=== PATIENT | female | born 1995 | race Caucasian/White ===

== ENCOUNTER 2024-03-04 13:51 | Outpatient (CLI) | payer OTHER, SELFPAY ==
--- NOTE | 2024-03-04 14:00 | CRLHL7_ITS ---
For Patients: As a result of the Cures Act, medical imaging exams and procedure reports are released immediately into your electronic medical record. You may view this report before your referring provider. If you have questions, please contact your health care provider. INDICATION: First trimester scan, establish dates. COMPARISON: None. TECHNIQUE: Real-time kinney-scale imaging of the pelvis was performed. FINDINGS: Sonographic imaging demonstrates a single living intrauterine gestation. The embryo demonstrates a regular cardiac rate measuring 171 beats per minute. The embryo`s crown-rump length measurement of 2.6 cm corresponds to a gestational age of 9 weeks 3 days with a sonographic due date of 10/04/2024. There is a normal-appearing yolk sac. There are no gross abnormalities noted within the embryo at this early state of development. The gestational sac has a normal appearance. There is no evidence of a perigestational hemorrhage. The amount of fluid within the sac appears appropriate for gestational age. The cervix is closed. The myometrium appears normal. The ovaries are of normal size. There are no suspicious fluid collections noted in the cul-de-sac. IMPRESSION: Normal first trimester OB ultrasound exam. Gestational age calculated at 9 weeks 3 days with a sonographic due date of 10/04/2024. Dictated by Kyle Liu MD @ 03/05/2024 10:41:14 AM (Electronically Signed)
== END 2024-03-04 13:52 | disposition home or self-care (01) ==
LOC: US 13:52
PROVIDERS: Visit Provider Physician Assistant
DX: Z34.91 Encounter for supervision of normal pregnancy, unspecified, first trimester (principal); Z3A.09 9 weeks gestation of pregnancy
CPT/HCPCS: 76801

== ENCOUNTER 2024-03-04 15:08 | Outpatient (CLI) | payer OTHER, SELFPAY | END 2024-03-04 15:09 | disposition home or self-care (01) | PROVIDERS: Visit Provider Advanced Practice Midwife | DX: Z34.91 Encounter for supervision of normal pregnancy, unspecified, first trimester (principal); R82.90 Unspecified abnormal findings in urine | CPT/HCPCS: 83020; 83021; 85660; 86592; 86703; 86704; 86706; 86762; 86787; 86803; 86850; 86900; 86901; 87086; 87340 ==

== ENCOUNTER 2024-05-24 10:05 | Outpatient (CLI) | payer OTHER, SELFPAY ==
--- NOTE | 2024-05-24 10:15 | CRLHL7_ITS ---
For Patients: As a result of the Century Cures Act, medical imaging exams and procedure reports are released immediately into your electronic medical record. You may view this report before your referring provider. If you have questions, please contact your health care provider. OBSTETRICAL ULTRASOUND ??? ANATOMY SURVEY, 05/24/2024 INDICATION: Basic anatomy survey. CLINICAL HISTORY: SUE by LMP: 09/30/2024 Gestational age: 21 weeks 4 days TECHNIQUE: Real-time kinney-scale imaging of the fetus was performed transabdominal. PREVIOUS ULTRASOUND: 03/04/2024 FINDINGS: position: Multiple positions. Cervix: Visualized Technique: Transabdominal Length of closed cervix: 3.7 cm Placenta position: Posterior Technique: Transabdominal Placenta tip to internal os: 5.7 cm Umbilical cord: 3-vessel cord Placental insertion: Central Amniotic fluid: 2.9 cm SDP (greater than/equal to 2 to less than 8 cm) ANATOMY SURVEY: Observed Structures Cerebellum: Yes; 2.1 cm, 21 weeks 1 day Cisterna magna: Yes; 5.9 mm Nuchal fold: Yes; 4.1 mm Lateral ventricle: Yes; 6.8 mm CSP: Yes Midline falx: Yes Choroid plexus: Yes Spine: Yes Stomach: Yes Abdominal cord insert: Yes Urinary bladder: Yes Kidneys: Yes Diaphragm: Yes Nose/lips: Yes Orbital view: Yes Profile: Yes Upper extremities: Yes Lower extremities: Yes Hands: Yes Feet: Yes 4-chamber heart: Yes LVOT: Yes RVOT: Yes 3VV: Yes 3VTV: Yes BIOMETRY BPD: 4.7 cm, 20 weeks 2 days, 8% HC: 18 cm, 20 weeks 3 days, 5% AC: 15.4 cm, 20 weeks 4 days, 16% FL: 3.5 cm, 21 weeks 1 day, 26% FL/AC: 22.86% HC/AC ratio: 1.16 heart rate: 138 bpm age by this ultrasound: 20 weeks 5 days SUE by this ultrasound: 10/06/2024 Estimated weight: 378 grams (0 pounds 13 ounces) Percentile by SUE: 13% IMPRESSION: 1) Sonographic gestational age is 20 weeks 5 days and sonographic due date is 10/06/2024. Sonographic age is 6 days behind the clinical age. 2) Estimated weight is 13th percentile. Abdominal circumference is 16th percentile. Head circumference is 5th percentile. 3) Normal anatomic survey. KYLE ESPINOZA M.D. Diagnostic Radiologist [email or web address] Transcribed: 12:[address]/Dictated by: Kyle Espinoza MD @ 05/24/2024 11:46:00 AM (Electronically Signed)
== END 2024-05-24 10:06 | disposition home or self-care (01) ==
LOC: US 10:06
PROVIDERS: Visit Provider Advanced Practice Midwife
DX: Z34.92 Encounter for supervision of normal pregnancy, unspecified, second trimester (principal); Z3A.21 21 weeks gestation of pregnancy
CPT/HCPCS: 76805

== ENCOUNTER 2024-07-19 08:07 | Outpatient (CLI) | payer OTHER, SELFPAY ==
--- NOTE | 2024-07-19 08:15 | CRLHL7_ITS ---
For Patients: As a result of the Century Cures Act, medical imaging exams and procedure reports are released immediately into your electronic medical record. You may view this report before your referring provider. If you have questions, please contact your health care provider. OB ULTRASOUND LMP: 12/25/2023. SUE by LMP: 09/30/2024. GA: 29 w, 4 d. Single. Comparison: 05/24/2024, 03/04/2024. INDICATION: Follow-up growth. TECHNIQUE: Real time grayscale imaging of the fetus was performed. Transabdominal. CERVIX: Not visualized. POSITIONING: Vertex. AMNIOTIC FLUID: 6.2 cm. SDP (N: greater than 2 x 1 cm) PLACENTA: Technique: Transabdominal. PLACENTA POSITION: Posterior. DOPPLER: heart rate: 135 bpm. BIOMETRY: BPD: 7.0 cm. 28 w, 2 d, 7.7 percent. HC: 27.2 cm. 29 w, 5 d, 18.9 percent. AC: 25.2 cm. 29 w, 3 d, 37.9 percent. FL: 5.3 cm. 28 w, 1 d, 6.1 percent. FL/AC ratio: 20.1 percent. HC/AC ratio: 1.1. EFW: 1302 g. Weight: 2 lbs, 14 oz. age by this US: 28 w, 6 d. SUE by this US: 10/05/2024. Percentile by SUE: 17.1 percent. IMPRESSION: 1. Sonographic gestational age 28 weeks 6 days and sonographic due date 10/05/2024. Sonographic age is 5 days behind the clinical age. 2. Estimated weight 17th percentile. Abdominal circumference 38th percentile. Kyle Liu M.D. Diagnostic Radiologist [email or web address] LUBNA/david hernandez/Dictated by: Kyle Liu MD @ 07/19/2024 11:22:00 AM (Electronically Signed)
== END 2024-07-19 08:08 | disposition home or self-care (01) ==
LOC: US 08:07
PROVIDERS: Visit Provider Obstetrics & Gynecology
DX: O26.843 Uterine size-date discrepancy, third trimester (principal); O36.5930 Maternal care for other known or suspected poor fetal growth, third trimester, not applicable or unspecified; Z3A.29 29 weeks gestation of pregnancy
CPT/HCPCS: 76816

== ENCOUNTER 2024-07-19 09:30 | Outpatient (CLI) | payer OTHER, SELFPAY | END 2024-07-19 09:31 | disposition home or self-care (01) | LOC: NFLDREF 09:32 | PROVIDERS: Visit Provider Obstetrics & Gynecology | DX: Z34.03 Encounter for supervision of normal first pregnancy, third trimester (principal); L29.9 Pruritus, unspecified | CPT/HCPCS: 82239; 84450; 84460; 86592 ==

== ENCOUNTER 2024-07-24 14:56 | Outpatient (CLI) | payer OTHER, SELFPAY ==
--- NOTE | 2024-07-25 08:28 | W.PM.LAC.MC ---
Consult Note - Mom Date of Visit Date of visit: 07/24/24 Reason for consultation: Other ( consult) Visit Code: Visit Patient's Information Phone number: [phone] : 1 Para: 1 Allergies amoxicillin Allergy (Intermediate, Verified 07/19/24 08:29) Hives Mother's Medical History: Medical History (Updated 06/21/24 @ 09:27 by Tiffanie Nicholson MD) Anemia ?D64.9 - Anemia, unspecified (ICD-10) Scarlet fever ?A38.9 - Scarlet fever, uncomplicated (ICD-10) Work Plans: will return to work Delivery Information Delivery type: Vaginal (planning) Gestational Age: du 10/31/24 Breast/Nipple Condition Breast Information: Has had breast changes during ; breasts are larger, initially were quite sensitive although that is better now, areola has darkened. Has not tried expressing colostrum yet Interested in hand expression when she is 36 weeks Assessments/Interventions Assessments/Interventions: Discussion/answered questions around the following topics: Benefits of What to expect after , the Ledesma Hour, the first few days of feedings Baby's hunger cues, feeding routine Establishing feeding routine positions Pumping, bottling, adding in bottles, developing freezer stash if desired Pump settings slightly reviewed; table pumps vs wearable pumps Returning to work, what pumping routine can look like-will need to be individualized upon return based on baby's needs, mom's milk supply and pumping routine at work Resources available, follow-up appts as needed Enc[facility]aged Center tour Education provided: Supply/demand nature of milk supply, Need for frequent stimulation/milk removal, Hand expression and Pumping for milk management (when return to work) Time Spent Time spent with patient (min): 45 Meds Home Medications and Allergies Home Medications ?Medication ?Instructions ?Recorded ?Confirmed ?Type [id number] 3-fat com #1 27 cap PO 03/04/24 07/19/24 History mg-1 mg-300 mg capsule aspirin 81 mg tablet,delayed 81 mg PO QDAY 04/16/24 07/19/24 History release loratadine 10 mg tablet (Claritin) 10 mg PO QDAY 04/16/24 07/19/24 History Allergies Allergy/AdvReac Type Severity Reaction Status Date / Time amoxicillin Allergy Intermediate Hives Verified 07/19/24 08:29
== END 2024-07-24 14:57 | disposition home or self-care (01) ==
LOC: OB LAC 14:57
PROVIDERS: PCP Family Medicine; Visit Provider Obstetrics & Gynecology
DX: Z39.1 Encounter for care and examination of lactating mother (principal)
CPT/HCPCS: G0463

== ENCOUNTER 2024-09-04 15:30 | Outpatient (CLI) | payer OTHER, SELFPAY ==
[2024-09-05 13:51] LABS: Strep B DNA Probe Negative (Negative)
[2024-09-05 13:54] LABS: Strep B Susceptibility Needed? No
== END 2024-09-04 15:31 | disposition home or self-care (01) ==
LOC: NFLDREF 15:30
PROVIDERS: PCP Family Medicine; Visit Provider Midwife
DX: Z34.93 Encounter for supervision of normal pregnancy, unspecified, third trimester (principal)
CPT/HCPCS: 87081; 87653

== ENCOUNTER 2024-09-18 10:53 | Outpatient (CLI) | payer OTHER, SELFPAY ==
[2024-09-18 11:05] VITALS: PULSE 83; O2SAT 98
[2024-09-18 11:08] VITALS: BP 137/88; PULSE 75
[2024-09-18 11:34] VITALS: RESP 16; TEMP 36.9
--- NOTE | 2024-09-18 12:32 | CRLHL7_ITS ---
For Patients: As a result of the Century Cures Act, medical imaging exams and procedure reports are released immediately into your electronic medical record. You may view this report before your referring provider. If you have questions, please contact your health care provider. INDICATION: DECREASED FM. (Sic) COMPARISON: None available. TECHNIQUE: Grayscale pelvic ultrasound via a transabdominal approach. FINDINGS: number: 1 Position: Cephalic. Placental Position: Posterior. Amniotic fluid: DVP 6.4cm. heart rate: 150bpm. BPP Score: Fluid: 2 Breathin Movement: 2 Tone: 2 Total: 8 IMPRESSION: Normal BPP score (8/8). Dictated by Jamie Bynum MD @ 09/18/2024 1:20:50 PM (Electronically Signed)
[2024-09-18 12:37] VITALS: BP 144/87; PULSE 89
[2024-09-18 12:54] VITALS: BP 136/84; PULSE 73
[2024-09-18 13:07] VITALS: BP 129/77; PULSE 75
--- NOTE | 2024-09-18 14:09 | PC.OBNST ---
NST Note NST Note Start: 09/18/24 11:13 Freq: ONCE Status: Active Protocol: Document 09/18/24 13:40 JRS (Rec: 09/18/24 14:09 JRS No Response) NST Note 1 Para (# of births) 0 EDC 09/30/24 Gestational Age In 38 Weeks & 2 Days Weeks & Days Patient Presented Decreased movement with Complaint(s) of Other Complaints BPP 10/11 Reactive Yes Appropriate for Yes Gestational Age RN Christine RN Date 09/18/24 Reactive Yes Appropriate for Yes Gestational Age SHAWNA Mccollum RN Date 09/18/24 OB NST charge Yes Complete NST Note Yes via Write Note The provider's electronic signature indicates the NST is reactive/appropriate for gestational age. *Note to provider: If an addendum is required, open the patient's chart and click on the note under the Nurse/Allied Health tab.
== END 2024-09-18 13:30 | disposition home or self-care (01) ==
LOC: OB OUT 10:54 → OB 10:57
PROVIDERS: PCP Family Medicine; Visit Provider Advanced Practice Midwife
DX: O36.8130 Decreased fetal movements, third trimester, not applicable or unspecified (principal); Z3A.38 38 weeks gestation of pregnancy
CPT/HCPCS: 59025; 76819; G0463

== ENCOUNTER 2024-10-07 12:45 | Outpatient (CLI) | payer OTHER, SELFPAY ==
--- NOTE | 2024-10-07 13:00 | CRLHL7_ITS ---
For Patients: As a result of the Cures Act, medical imaging exams and procedure reports are released immediately into your electronic medical record. You may view this report before your referring provider. If you have questions, please contact your health care provider. OB ULTRASOUND BIOPHYSICAL PROFILE, 10/07/2024 INDICATION: Post dates. TECHNIQUE: Real time kinney scale imaging of the fetus was performed. Transabdominal. LMP: 12/25/2023. SUE by LMP: 09/30/2024. GA: 41 w, 0 d. Previous US: 09/18/2024, 07/19/2024, 05/24/2024. Single. Cervix: Not visualized. Positioning: Vertex. ARCELIA: 27.5 cm. 10.1 cm SDP. Placenta: Posterior left wall. Heart Rate: 138 bpm. Biophysical Profile: 2 Gross Movements 2 Tone 2 Respiratory Activity 2 Amniotic Fluid SDP 8 Total Score IMPRESSION: 1. Normal biophysical profile 10/11. 2. Amniotic fluid single deepest pocket 10.1 cm. ARCELIA 27.5 cm. Kyle Liu M.D. Diagnostic Radiologist [email or web address] LUBNA/kota JR/Dictated by: Kyle Liu MD @ 10/08/2024 7:07:00 AM (Electronically Signed)
== END 2024-10-07 12:46 | disposition home or self-care (01) ==
LOC: US 12:46
PROVIDERS: PCP Family Medicine; Visit Provider Advanced Practice Midwife
DX: O48.0 Post-term pregnancy (principal); Z3A.41 41 weeks gestation of pregnancy
CPT/HCPCS: 76819

== ENCOUNTER 2024-10-07 14:11 | Inpatient (IN) | payer OTHER, SELFPAY ==
[2024-10-07] VITALS (10 sets, daily range): BP systolic 128–149; BP diastolic 66–100; PULSE 60–70; RESP 16–17; TEMP 36.8–37; BMI 29.1
--- NOTE | 2024-10-07 16:05 | P.LDBA_ITS ---
Subjective History of Present Illness Date Seen: 10/07/24 Narrative: Maile is being admitted to Labor and Delivery for IOL for mild polyhydramnios diagnosed today in clinic with an ARCELIA 27.4. She is a 29 year old at 41.0 weeks gestation and is supported by her mom. He plans to come later this afternoon. Her full history and physical was dictated by Aleksey Webb CNM on 09/12/24. Please see this for details. We discussed option for IOL. I ruled out AROM given her dilation, lack of contractions, ballotable fetus and polyhydramnios. We discussed Cytotec, Cook catheter and Pitocin reviewed risks and benefits of each. Questions answered. She elects to proceed with vaginal Cyt otec. We reviewed elevated blood pressures. She did have an elevated blood pressure in the 140's on 09/18 and her initial blood pressure toady was in the 140's We reviewed diagnosis of gestational hypertension and will collect labs. Reviewed implications of gestational hypertension and potential diagnosis of preeclampsia on labor and delivery. 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 Had series, pt declines revaccination Ultrasounds 1st trimester (03/04/2024): IMPRESSION: Normal first trimester OB ultrasound exam. Gestational age calculated at 9 weeks 3 days with a sonographic due date of 10/04/2024. Anatomy scan (05/24/2024): IMPRESSION: 1)Sonographic gestational age is 20 weeks 5 days and sonographic due date is 10/06/2024. Sonographic age is 6 days behind the clinical age. 2)Estimated weight is 13th percentile. Abdominal circumference is 16th percentile. Head circumference is 5th percentile. 3)Normal anatomic survey. Growth Follow-up (07/19/2024): IMPRESSION: 1. Sonographic gestational age 28 weeks 6 days and sonographic due date 10/05/2024. Sonographic age is 5 days behind the clinical age. 2. Estimated weight 17th percentile. Abdominal circumference 38th percentile. Flu (Seasonal):?? Tdap:??09/19/2024 32wk Mental Health:?completed? Pap: 2023, NIL OB - Problem Based A/P Additional Plan (1) Polyhydramnios affecting in third trimester: Status: Acute (2) Depression: Status: Acute (3) Generalized anxiety disorder: Status: Acute (4) Allergy history, penicillin: Problem details: Allergy testing cleared for penicillin but not amoxicillin. Status: Acute (5) Encounter for induction of labor: Status: Acute Plan ASSESSMENT:? 29 at 41.0 weeks gestation? complicated by:?IOL for mild polyhydramnios, Hepatitis B non-immune (works in healthcare), hx anxiety/depression, family hx of idiopathic cardiomyopathy Labor type: Induction Category 1 FHR pattern.?? Labor complicated by: IOL, polyhydramnios ? GBS negative? ? PLAN:? 1. Routine intrapartum cares as ordered. Initiate IOL with vaginal Cytotec. 2. Monitoring per policy, continuous for gestational hypertension 3. Candidate for analgesia of choice. Planning epidural.? 4. Patient encouraged to reposition and ambulate to promote physiologic labor and .? 6. Anticipate ? Delivery/Labor/Induction Plan Plan: induction Induction method: per misoprostol protocol OB Result Labs Blood Type: A (+) positive Rubella: immune RPR/VDLR: nonreactive GBS Status: negative HBsAG: negative OB Exam Physical Exam Vital signs: Temp Pulse Resp BP 98.2 F 62 17 137/88 10/07/24 14:22 10/07/24 14:38 10/07/24 14:22 10/07/24 14:38 Narrative: Psychiatric:? Alert and oriented x3? HEENT:? Normocephalic, atraumatic? Neck:? Supple without adenopathy or thyromegaly? Lungs:? Clear to auscultation bilaterally? Heart:? Regular rate and rhythm, no murmur, rub or gallop? Abdomen:? Soft, nontender, and gravid? Extremities:? No edema or erythema? Detailed Labor and Delivery Exam Patient Gravid: yes Dilation (cm): 1 Effacement (%): 50 Cervix position: posterior Consistency: medium Contraction Frequency: 4-6 min, irregular Tachysystole: No Contraction intensity: Mild
[2024-10-07 16:41] LABS: Hematocrit 31.5 % (33.0-51.0); Hemoglobin* 10.1 gm/dL (12.0-16.0); Immature Granulocytes Abs Auto 0.09 K/uL (0.00-0.30); Immature Granulocytes Pct Auto 1.1 %; Mean Corpuscular HGB Conc 32 gm/dL (32-36); Mean Corpuscular Hemoglobin 26 pg (26-34); Mean Corpuscular Volume 81 fL (80-100); RDW Coefficient of Variation % 13.7 % (11.5-15.5); Red Blood Count 3.88 m/uL (4.00-5.20); White Blood Count* 8.19 K/uL (4.50-11.00)
[2024-10-07 16:55] LABS: Lymphocytes Absolute Auto 1.20 K/uL (0.90-2.90); Slide Review Reflex No
[2024-10-07 17:03] LABS: Alanine Aminotransferase* 22 U/L (4-35); Aspartate Amino Transferase* 35 U/L (12-35); Blood Urea Nitrogen* 10 mg/dL (5-24); Creatinine* 0.7 mg/dL (0.5-1.5); Est. Creatinine Clearance* 110.01; Estimated Glomerular Filt Rate 119 ml/min
[2024-10-07 18:22] LABS: Protein Creatinine Ratio Urine 0.36 (0-0.19)
[2024-10-08] VITALS (52 sets, daily range): BP systolic 122–180; BP diastolic 62–101; PULSE 47–89; RESP 16–24; TEMP 36.4–37; O2SAT 93–100
[2024-10-08] MEDS: ONDANSETRON 2 MG/ML inj 4 MG IV (01:33)
[2024-10-08] MEDS: LACTATED RINGERS 1000 ML 1,000 ML IV (05:30)
[2024-10-08] MEDS: LABETALOL HCL 5 MG/ML inj IVP (06:00)
--- NOTE | 2024-10-08 07:05 | PM.OBPNL ---
Subjective Date Seen: 10/08/24 Narrative: I received a notification around 0600 that Maile had 2 severe range blood pressures that were treated with Labetalol. I was informed that at the time of these blood pressures she was having difficult coping with the rapid progress of labor. Within a few minutes of this notification she was feeling pressure and was found to be complete and I was asked to present to bedside. When I arrived she was spontaneously pushing and using nitrous to help her cope with labor. She was coached on pushing and was making descent. Since her initial treatment her blood pressures have remained in the 130-140's. The decision was made not to treat with magnesium at this time given the repaid labor progress and blood pressures remaining not in the severe range at this time and presumption that delivery is close at hand. If she has additional severe range blood pressures before delivery or delivery is more delayed than initial anticipated will plan to initiate magnesium therapy. Care handed off to Aleksey Webb CNM at change of shift. Objective Vital Signs: Last Vital Signs Temp 97.5 F L 10/08/24 06:50 Pulse 65 10/08/24 06:54 Resp 18 10/08/24 04:25 BP 131/71 10/08/24 06:54 Pelvic Exam Dilation (cm): 10 Effacement (%): 100 Station: +3 Contractions Monitor mode: External Contraction Frequency: 2-3 Contraction pattern: Regular Contraction intensity: Strong/Firm Assessment Assessment: active labor Station: +3 Amniotic Membrane Status: SROM Status: Category ll Heart Rate Baseline: 115 Fpc Variability: Moderate (6-25) Monitor Accelerations: Present Monitor Decelerations: Variable Tracing Comments: Variable decelerations noted with pushing. Initially decreases to the 90's but is now decreasing to the 60's with some pushes with quick return to baseline. Change in positions has not changed the variable decelerations. Plan Plan: ASSESSMENT:? 29 at 41.1 weeks gestation? complicated by:?IOL for mild polyhydramnios, Hepatitis B non-immune (works in healthcare), hx anxiety/depression, family hx of idiopathic cardiomyopathy Labor type: Induction, 2nd stage of labor Severe preeclampsia Category 2 FHR pattern with variable decelerations?? Labor complicated by: IOL, polyhydramnios, severe preeclampsia ? GBS negative? ? PLAN:? 1. Routine intrapartum cares as ordered. Continue with second stage of labor pushing. 2. Monitoring per policy, continuous 3. Candidate for analgesia of choice. Planning epidural but unable to get due to rapid labor progress. Utilizing nitrous for labor coping. 4. Magnesium held at this time with the assumption that delivery is imminent. If additional severe range pressures or delivery is delayed long than anticipated consider starting sooner. Plan for magnesium therapy after delivery. 5. Care assumed by Aleksey Webb CNM after signing out 6. Anticipate ?
[2024-10-08] MEDS: MAGNESIUM IV 4 GM/100 ML PIGGYBACK IVPB (07:31)
[2024-10-08] MEDS: LACTATED RINGERS 1000 ML 1,000 ML 75 ML IV ×2 (07:32→20:43)
[2024-10-08] MEDS: OXYTOCIN 30 unit/500 ML in NS 30 UNIT/500 ML BAG 300 UNIT IVPB (07:35)
[2024-10-08] MEDS: LIDOCAINE 1 % PF 30 ML INJECTION (07:52)
--- NOTE | 2024-10-08 08:00 | W.PM.VAGDE_ITS ---
OB Procedure Vag Delivery Mother Details Mother Details: The patient is a 29 year-old, 1, now Para 1, admitted on 10/07/24 at 41.0 weeks gestation for induction of labor for post-dates with polyhydramnios. Her labor was complicated with severe range blood pressures in the 2nd stage. She was treated with IV labetalol x1 and previous CNM recommended holding off initiating magnesium until delivery. This CNM assumed care with scalp visible with pushing with small crown and elected to hold magnesium until delivery as it was imminent and patient BP was now mild range. : 1 Para: 1 Weeks Gestation: 41.1 Admission Date: 10/08/24 Additional Details Amniotic Membrane Status: SROM Amniotic Membrane Rupture Date: 10/08/24 Amniotic Membrane Rupture Time: 02:47 Amniotic Membrane Fluid Description: Clear Analgesia/Anesthesia Type: Local and Nitrous Oxide Waterbirth: No Pitcoin: Yes ([facility] only) Intrapartal Events: Labor Induction Induction Method: per misoprostol protocol (x3 doses) Labor Onset: 02:47 Complete: 06:05 Pushin:27 Heart: heart tones during second stage were category II with recurrent variables, some deep with long to the 50's, and variability remained moderate. Terminal bradycardia was noted with and patient was guided to push more adequately to expedite delivery. Delivery Details Delivery Date: 10/08/24 Delivery Time: 07:25 Route of delivery: Infant Gender: Female Viability: Alive; Heart Rate Present Position at Delivery: OA Delivery Details: Patient was admitted for induction of labor for polyhydramnios and post-dates. She received 3 doses of cytotec before she had spontaneous rupture of membranes at 0247 of clear fluid. She then progressed on her own. She developed severe range blood pressures and these were treated with IV labetalol. At this time patient had requested and epidural and was found to be complete and +2. Patient was complete at 0605 and pushing at 0627. Due to labor status, patient utilized nitrous instead for pain management in the 2nd stage. She had a difficult time coping with pain and pushing. When heart rate concerns continue to become more recurrent, she was guided to push more effectively. of a viable female at 0725 in semi-fowlers on the bed. Vertex delivered OA. No nuchal cord. Shoulder was palpated behind the pubic bone and due to tracing, Barbara and Suprapubic was performed to alleviate anterior shoulder and expedite delivery. Total time from head to body is 20 seconds. Body then delivered easily and without incident. passed to mothers abdomen with a vigorous cry. Cord was clamped and cut at > 5 minutes. APGARS were 8 at one minute and 9 at five minutes respectively. Mouth was bulb suctioned. Intact placenta with a 3 vessel cord delivered spontaneously at 0741. Fundus firm. 2nd degree perineal laceration identified and repaired in typical fashion. QBL 550 cc. Mother and baby stable; mother plans to breastfeed. weight 3735 g. 1 Minute Interval Total Score: 8 5 Minute Interval Total Score: 9 Additional Details Shoulder Dystocia: Yes (Alleviated with Barbara and Suprapubic ultimately due to FHR concerns) Placenta Delivery Time: 07:41 Placental Delivery Description: Spontaneous Delivery repair: Vicryl Procedure Done: Global Blood Loss: 550 Laceration: Perineal - 2nd Degree Blood Loss Measurement Type: QBL Bakri Used: No Sponge/Need Count Correct: Yes Cord Vessel Description: 3 Vessels Event Summary Status: Mother and infant were stable after delivery. Magnesium sulfate initiated post- delivery for newly diagnosed Pre-eclampsia with Severe Features based on severe range blood pressures. Dr. Villa to assume care . Labs pending. Disposition: floor
[2024-10-08] MEDS: MAGNESIUM Infusion 40 GM/1,000 ML IV.SOLN IVPB (08:04)
[2024-10-08 09:11] LABS: Hematocrit 31.1 % (33.0-51.0); Hemoglobin* 9.8 gm/dL (12.0-16.0); Mean Corpuscular HGB Conc 32 gm/dL (32-36); Mean Corpuscular Hemoglobin 26 pg (26-34); Mean Corpuscular Volume 81 fL (80-100); Red Blood Count 3.84 m/uL (4.00-5.20); White Blood Count* 15.85 K/uL (4.50-11.00)
[2024-10-08 09:18] LABS: Slide Review Reflex No
[2024-10-08 09:28] LABS: Alanine Aminotransferase* 27 U/L (4-35); Aspartate Amino Transferase* 49 U/L (12-35); Blood Urea Nitrogen* 10 mg/dL (5-24); Creatinine* 0.7 mg/dL (0.5-1.5); Est. Creatinine Clearance* 110.01; Estimated Glomerular Filt Rate 119 ml/min
[2024-10-08] MEDS: IBUPROFEN 600 MG TABLET PO ×2 (10:58→18:09)
[2024-10-08] MEDS: ACETAMINOPHEN 500 MG TABLET 1000 MG PO ×2 (14:27→22:12)
--- NOTE | 2024-10-08 14:49 | PM.OBCN1 ---
OB - CN: HPI Date of Consult Date Seen: 10/08/24 Consult date: 10/08/24 Requesting Physician: Jasmyn Malik CNM Primary Care Provider: Romario Russell MD Consult Narrative Narrative: Maile is a 29-year-old G1 now P 1-0-0-1 woman who is status post normal spontaneous vaginal delivery earlier today at 41 weeks, 1 day gestation after induction of labor for mild polyhydramnios. She was diagnosed with preeclampsia with severe features based on blood pressure criteria while in second stage labor. She was started on magnesium immediately . She had 2nd degree laceration. Blood pressures have been almost entirely normal since delivery. At the time of my evalution of the patient around 3:45 PM today, she was resting in bed. She denies any flushing or SOB. She is her infant daughter. She did report to me that she had to urinate. She denied BRAUN, visual changes or RUQ pain. History History 1 Elective abortions 0 Para 1 Spontaneous abortions 0 Hx # Term Pregnancies 0 Ectopic pregnancies 0 Hx # Pregnancies 0 Multiple births 0 Number of Living Children 0 Labs Blood type: A (+) positive Rubella: immune RPR/VDLR: nonreactive GBS status: negative HBsAG: negative OB Labs: Lab Assessment Start: 10/07/24 14:16 Freq: PRN Status: Complete Protocol: PC.OBGBS Activity Type Activity Date Activity User E-sign Co-sign Detail Recorded Client Recorded Date Recorded By Document 10/07/24 14:16 [facility] No Response 10/07/24 14:56 [facility] 10/07/24 14:16 Lab Assessment GBS Status negative GBS Additional Criteria None Is Patient Allergic to Penicillin? No No Treatment Needed OK Are Labs Available Yes Maternal Blood Type A Maternal RH Factor Positive Evaluate Maternal Rubella Immune Status Immune Hepatitis B Surface Antigen Negative Maternal HIV Status Negative Maternal Syphillis (RPR) Status Negative PFSH PFS Medical History (Updated 10/08/24 @ 12:54 by Millie Webb CNM) Family history of cardiomyopathy ?Z82.49 - Family history of ischemic heart disease and other diseases of the circulatory system (ICD-10) Anemia ?D64.9 - Anemia, unspecified (ICD-10) Scarlet fever ?A38.9 - Scarlet fever, uncomplicated (ICD-10) Surgical History (Updated 03/04/24 @ 14:55 by Millie Webb CNM) Hobbs teeth removed ?K08.409 - Partial loss of teeth, unspecified cause, unspecified class (ICD-10) Family History (Updated 03/04/24 @ 18:01 by Millie Webb CNM) Maternal Grandmother Diabetes Paternal Grandmother Diabetes Idiopathic cardiomyopathy Mother High blood pressure Aunt Idiopathic cardiomyopathy Uncle Idiopathic cardiomyopathy Social History (Updated 03/04/24 @ 17:59 by Millie Webb CNM) Narrative: SOCIAL Education: Bachelors Degree 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: [employer] Lives with: Leland Pets: no pets Abuse: Special Diet: Denies Ok with a blood transfusion: yes Culture or yarsanism beliefs: denies RISK FACTORS Exercise Times/wk: Lifting weights and walking on treadmill, 2-4x per week Hx of Depression and/or Anxiety/other mood disorder: Hx of both, managed well; Seeing a virtual therapist for work event; no hx of medication Seat Belt Use: Routinely Smoking: Denies past/present Alcohol/day: Denies while Caffeine: not currently Drug Use: Denies past/present Chicken Pox: Yes as a child MRSA: Denies What is your current living situation?: I presently have a place to live Problems where you live: no known problems In the past 12 months, utilities in danger of being shut off: no In past 12 months, lack of transportation kept you from medical appts, meetings, work, or getting things needed for daily living: no In the past 12 mos, have been you worried that your food would run out before you had money to buy more?: never true In the past 12 mos, the food you bought just didn't last and you didn't have money to buy more?: never true Smoking Status: Never smoker How often does anyone, including family, friends and others, physically hurt you: never How often does anyone, including family, friends and others, insult or talk down to you: never How often does anyone, including family, friends and others, threaten you with harm: never How often does anyone, including family, friends and others, scream or curse at you: never Meds Home Medications and Allergies Home Medications ?Medication ?Instructions ?Recorded ?Confirmed ?Type MWA-zlni-ON-omega 3 fatty no.1 27 1 cap PO DAILY 03/04/24 10/07/24 History mg-1 mg-300 mg capsule aspirin 81 mg tablet,delayed 81 mg PO QDAY 04/16/24 10/07/24 History release loratadine 10 mg tablet (Claritin) 10 mg PO QDAY 04/16/24 10/07/24 History magnesium chloride 64 mg 70 mg PO DIRECTED PRN 08/21/24 10/07/24 History (magnesium chloride) tablet Allergies Allergy/AdvReac Type Severity Reaction Status Date / Time amoxicillin Allergy Intermediate Hives Verified 10/07/24 13:36 OB - H&P: Exam Physical Exam: Vital signs: Temp Pulse Resp BP Pulse Ox O2 Del Method 97.8 F 86 16 137/76 98 Room Air 10/08/24 14:10/08/24 14:10/08/24 14:10/08/24 14:10/08/24 14:10/08/24 12:34 Narrative: General: Pleasant, no acute distress Heart: Regular rate and rhythm, no murmur or gallop Lungs: Clear to auscultation bilaterally Abdomen: Soft, nontender, fundus 6 cm above umbilicus and deviated to patient's left. Lower extremities: 1+ edema bilaterally, no erythema OB - Results Labs Labs: Short CBC 10/07/24 10/08/24 Range/Units 16:32 09:04 WBC 8.19 15.85 H (4.50-11.00) K/uL Hgb 10.1 L 9.8 L (12.0-16.0) gm/dL Hct 31.5 L 31.1 L (33.0-51.0) % Plt Count 160 160 (140-440) K/uL BMP 10/07/24 10/08/24 16:32 09:04 BUN 10 10 Creatinine 0.7 0.7 Liver Function 10/07/24 10/08/24 Range/Units 16:32 09:04 AST 35 49 H (12-35) U/L ALT 22 27 (4-35) U/L OB - CN: A/P Assessment and Plan (1) Normal spontaneous vaginal delivery: Status: Acute Assessment and Plan: Fundus found to be well above umbilicus on exam. Patient was escorted to bathroom with help of RN and voided 1100 cc of urine. Repeat fundal exam by RN showed fundus to be below umbilicus. (2) Severe pre-eclampsia: Status: Acute Plan Plan for 24 hours of magnesium sulfate infusion for seizure prophylaxis. HELLP_labs Q 6 hours. SCDs were instituted this afternoon. BPs Q 4 h. Addendum: patient was found to have one elevated BP again this evening. Will begin nifedipine ER 30 mg QHS. In addition, hemoglobin has been falling steadily. RN and patient deny heavy bleeding. Will begin ferrous sulfate QOD.
[2024-10-08 14:58] LABS: Hematocrit 26.4 % (33.0-51.0); Hemoglobin* 8.6 gm/dL (12.0-16.0); Mean Corpuscular HGB Conc 33 gm/dL (32-36); Mean Corpuscular Hemoglobin 27 pg (26-34); Mean Corpuscular Volume 81 fL (80-100); Red Blood Count 3.25 m/uL (4.00-5.20); White Blood Count* 14.12 K/uL (4.50-11.00)
[2024-10-08 15:10] LABS: Slide Review Reflex No
[2024-10-08 15:15] LABS: Blood Urea Nitrogen* 9 mg/dL (5-24); Creatinine* 0.8 mg/dL (0.5-1.5); Est. Creatinine Clearance* 96.26; Estimated Glomerular Filt Rate 102 ml/min
[2024-10-08 15:16] LABS: Alanine Aminotransferase* 26 U/L (4-35); Aspartate Amino Transferase* 54 U/L (12-35)
[2024-10-08 21:00] LABS: Hematocrit 25.2 % (33.0-51.0); Hemoglobin* 8.0 gm/dL (12.0-16.0); Mean Corpuscular HGB Conc 32 gm/dL (32-36); Mean Corpuscular Hemoglobin 26 pg (26-34); Mean Corpuscular Volume 82 fL (80-100); Red Blood Count 3.09 m/uL (4.00-5.20); White Blood Count* 12.23 K/uL (4.50-11.00)
[2024-10-08 21:13] LABS: Slide Review Reflex No
[2024-10-08 21:18] LABS: Alanine Aminotransferase* 25 U/L (4-35); Aspartate Amino Transferase* 57 U/L (12-35); Blood Urea Nitrogen* 8 mg/dL (5-24); Creatinine* 0.8 mg/dL (0.5-1.5); Est. Creatinine Clearance* 96.26; Estimated Glomerular Filt Rate 102 ml/min
[2024-10-08] MEDS: FERROUS SULFATE 325 MG TABLET PO (22:24)
[2024-10-09] VITALS (8 sets, daily range): BP systolic 120–145; BP diastolic 68–80; PULSE 70–97; RESP 16–18; TEMP 36.9–37; O2SAT 97–99
[2024-10-09 03:03] LABS: Hematocrit 24.7 % (33.0-51.0); Hemoglobin* 8.0 gm/dL (12.0-16.0); Mean Corpuscular HGB Conc 32 gm/dL (32-36); Mean Corpuscular Hemoglobin 26 pg (26-34); Mean Corpuscular Volume 82 fL (80-100); Red Blood Count 3.03 m/uL (4.00-5.20); White Blood Count* 11.14 K/uL (4.50-11.00)
[2024-10-09 03:05] LABS: Slide Review Reflex No
[2024-10-09 03:29] LABS: Blood Urea Nitrogen* 8 mg/dL (5-24); Creatinine* 0.7 mg/dL (0.5-1.5); Est. Creatinine Clearance* 110.01; Estimated Glomerular Filt Rate 119 ml/min
[2024-10-09 03:30] LABS: Alanine Aminotransferase* 26 U/L (4-35); Aspartate Amino Transferase* 61 U/L (12-35)
[2024-10-09] MEDS: MAGNESIUM Infusion 40 GM/1,000 ML IV.SOLN IVPB (03:52)
[2024-10-09] MEDS: IBUPROFEN 600 MG TABLET PO ×3 (04:38→22:17)
--- NOTE | 2024-10-09 07:02 | PM.OBPNVD1 ---
OB - PN:Subj Subjective Time Seen by Provider: 07:02 Date Seen: 10/09/24 Interval history: Maile is a 29-year-old G1 now P 1-0-0-1 woman who is status post normal spontaneous vaginal delivery at 41 weeks, 1 day gestation on 10/08/24 after induction of labor for mild polyhydramnios. She was diagnosed with preeclampsia with severe features based on blood pressure criteria while in second stage labor. She was started on magnesium immediately . She had 2nd degree laceration and EBL of 550 cc. She is on Nifedipine XL 30 mg QD. Narrative: Overnight patient had no complaints. Her pain is well controlled on oral pain medications. She is tolerating a regular diet. She has passed flatus. She is ambulating without difficulty. Lochia is scant. She is urinating without Pak. Patient denies chest pain, SOB, n/v, headache, RUQ pain, vision changes, dizziness. Working on . Magnesium is off after 24 hours . Feeling much more alert with discontinuation of magnesium. OB - PN: Obj Exam Physical Exam: Vital signs: Temp Pulse Resp BP Pulse Ox O2 Del Method 98.4 F 94 18 130/80 99 Room Air 10/09/24 00:00 10/09/24 06:00 10/09/24 06:00 10/09/24 06:00 10/09/24 06:00 10/09/24 06:00 Narrative: Physical exam: General: No acute distress Psych: Alert and oriented x4, full affect HEENT: Normocephalic, atraumatic Heart: Regular rate and rhythm, no murmur rub or gallop Lungs: Clear to auscultation bilaterally Abdomen: Soft, no tenderness, rebound, or guarding. Skin: No lesions or rashes Breasts: Appears normal bilaterally. Expressing colostrum appropriately Lower extremities: +1 bilateral lower extremity edema Pelvic exam: Deferred OB - PN: Obj Data Labs Labs: Laboratory Results - last 24 hr 10/08/24 10/08/24 10/08/24 09:04 14:52 20:53 WBC 15.85 H 14.12 H 12.23 H RBC 3.84 L 3.25 L 3.09 L Hgb 9.8 L 8.6 L 8.0 L Hct 31.1 L 26.4 L 25.2 L MCV 81 81 82 MCH 26 27 26 MCHC 32 33 32 Plt Count 160 148 146 BUN 10 9 8 Creatinine 0.7 0.8 0.8 Estimated Creat Clear 110.01 96.26 96.26 Estimated GFR 119 102 102 Magnesium 5.5 H* 6.4 H* AST 49 H 54 H 57 H ALT 27 26 25 10/09/24 03:00 WBC 11.14 H RBC 3.03 L Hgb 8.0 L Hct 24.7 L MCV 82 MCH 26 MCHC 32 Plt Count 157 BUN 8 Creatinine 0.7 Estimated Creat Clear 110.01 Estimated GFR 119 Magnesium 6.4 H* AST 61 H ALT 26 OB - PN: A/P Delivery Assessment and Plan (1) Normal spontaneous vaginal delivery: Status: Acute Assessment and Plan: care: - Diet: Advance as tolerated - Fluid: Encourage oral intake - Activity: Encourage ambulation and incentive spirometry - Pain: Acetaminophen, Ibuprofen - DVT prophylaxis: SCDs and TEDs when not ambulating. Baby's Status - Fetus: 8, 9 - 8lb 3.748 oz, female - Location: Bedside (2) Severe pre-eclampsia: Status: Acute Assessment and Plan: Pre-Eclampsia with severe features - Based on severe ranging blood pressure - BPs overnight: one mild ranging BP (145/78), otherwise wnl - Symptoms: Denies - Magnesium: on Magnesium for seizure ppx - IV antihypertensives: currently not indicated - Pre-eclampsia labs on 10/09 at 0300: Hgb 8.0 Plt 157 Cr 0.7 ALT 26 AST 61 - UOP: 2.73 cc/kg/hr - Will d/c q6h labs. Next set of labs in the AM - Will monitor for 24 hours after mag discontinuation (3) Acute blood loss anemia: Status: Acute Assessment and Plan: - EBL 550 cc - 10.1 (10/07) --> 9.8 --> 8.6 --> 8.0 --> 8.0 (10/09) - VSS - Asymptomatic - Ferrous sulfate Q48H
[2024-10-09] MEDS: DOCUSATE SODIUM 100 MG CAPSULE PO (08:58)
[2024-10-09] MEDS: ACETAMINOPHEN 500 MG TABLET 1000 MG PO ×2 (10:58→20:29)
[2024-10-10 00:19] VITALS: BP 129/78; PULSE 76; RESP 16; O2SAT 98
[2024-10-10 05:15] VITALS: BP 142/90
[2024-10-10] MEDS: ACETAMINOPHEN 500 MG TABLET 1000 MG PO ×2 (05:15→11:06)
[2024-10-10 05:30] VITALS: BP 127/82; PULSE 67; RESP 16; O2SAT 97
[2024-10-10 05:55] LABS: Hematocrit 27.1 % (33.0-51.0); Hemoglobin* 8.4 gm/dL (12.0-16.0); Mean Corpuscular HGB Conc 31 gm/dL (32-36); Mean Corpuscular Hemoglobin 26 pg (26-34); Mean Corpuscular Volume 83 fL (80-100); Red Blood Count 3.25 m/uL (4.00-5.20); White Blood Count* 11.72 K/uL (4.50-11.00)
[2024-10-10 05:59] LABS: Slide Review Reflex No
[2024-10-10 06:11] LABS: Alanine Aminotransferase* 31 U/L (4-35); Aspartate Amino Transferase* 63 U/L (12-35); Blood Urea Nitrogen* 13 mg/dL (5-24); Creatinine* 0.8 mg/dL (0.5-1.5); Est. Creatinine Clearance* 96.26; Estimated Glomerular Filt Rate 102 ml/min
--- NOTE | 2024-10-10 08:22 | PM.OBDSVD1 ---
DS: Providers Provider Time Seen by Provider: 08:30 Date Seen: 10/10/24 Date of admission: 10/07/24 14:11 Primary care physician: Romario Russell MD Admitting Clinician: Jasmyn Malik CNM Consults: 10/08/24 12:23 Consult to Physician [CONS] Routine Comment: Consulting Provider: Lizzie Villa Has provider been notified: Yes Attending Physician on discharge: Sarah Salcedo MD Date of Discharge: 10/10/24 DS: Diagnosis Discharge Diagnosis (1) Acute blood loss anemia: Status: Acute (2) Normal spontaneous vaginal delivery: Status: Acute (3) Severe pre-eclampsia: Status: Acute Exam Narrative: Exam Narrative: General: Pleasant, , well groomed woman in no acute distress. Vital signs: Included in her electronic medical record. Heart: Regular rate and rhythm without gallop, rub or murmur. Chest: Clear to auscultation bilaterally. Abdomen: Soft, nontender and nondistended with normal bowel sounds throughout. No CVA or flank tenderness. Fundus is firm at the umbilicus in the midline. Extremities: No pain or edema. Const: Vital Signs, click to edit/add: Vital Signs - 24 hr 10/09/24 08:47 10/09/24 12:57 10/09/24 16:22 Temperature 98.5 F 98.6 F Pulse Rate [Pulse Oximeter] 70 84 Respiratory Rate 16 18 Blood Pressure [Ri ght Arm] 131/79 121/76 134/76 Pulse Oximetry 98 97 Oxygen Delivery Me thod Room Air Room Air 10/09/24 20:25 10/10/24 00:19 10/10/24 05:15 Temperature Pulse Rate [Pulse Oximeter] 76 76 Respiratory Rate 16 16 Blood Pressure [Ri ght Arm] 120/72 129/78 142/90 H Pulse Oximetry 98 98 Oxygen Delivery Me thod Room Air Room Air 10/10/24 05:30 Temperature Pulse Rate [Pulse Oximeter] 67 Respiratory Rate 16 Blood Pressure [Ri ght Arm] 127/82 Pulse Oximetry 97 Oxygen Delivery Me thod Room Air OB - DS: Summary Hospital Course Hospital Course: Maile is a 29 year old G1P 0 now 1 at 41 weeks and 0 days gestation that was admitted to the Center on 10/07/24 for induction of labor for post-dates and mild polyhydramnios with an ARCELIA of 27.1. She had an uncomplicated vaginal delivery. She delivered a viable female infant. She is breast feeding. She was diagnosed with severe preeclampsia by blood pressure criteria during the 2nd stage of labor. She delivered on 10/08/2024 and her magnesium was discontinued yesterday morning at approximately 7:30 a.m.. Her blood pressures have been well controlled on nifedipine ER 30 mg daily. She has had 1 blood pressure of 142/90 otherwise the remainder of her blood pressures have all been 130/80s or lower. I recommended that she check her blood pressure at least daily after discharge and return to the clinic for blood pressure check on Monday10/14/2024. She also has anemia with a hemoglobin of 8.4. She is on an iron supplement 325 mg every other day. Peripartum Data Infant delivery method: Vaginal Laceration description: Perineal - 2nd Degree [place] Infant Gender: Female Status at Discharge Functional status at discharge: independent ambulation Time Spent with Patient Time attestation: Total time spent providing and/or coordinating discharge services: Time spent: Less than 30 minutes Discharge Plan Discharge Disposition: Home, Self-Care Date of Admission: 10/07/24 14:11 Attending Provider on Discharge: Sarah Garduno Consulting Providers: Lizzie Villa Primary Care Provider: Romario Russell Condition: Improved Anticipated Discharge Date/Time: 10/10/24 12:30 Discharge Medications: New nifedipine 30 mg Tablet Extended Release 30 mg PO DAILY Qty: 60 0RF ferrous sulfate 325 mg (65 mg iron) Tablet 325 mg PO Q48H Qty: 60 0RF docusate sodium 100 mg Capsule 100 mg PO BID PRN (Reason: constipation) Qty: 100 0RF ibuprofen 600 mg Tablet 600 mg PO Q6H PRNQty: 30 0RF Continued [id number]-[id number]-omega 3 fatty no.1 27-1-300 mg capsule 1 cap PO DAILY loratadine [Claritin] 10 mg tablet 10 mg PO QDAY magnesium chloride 64 mg magnesium tablet 70 mg PO DIRECTED PRN Discontinued aspirin 81 mg tablet,delayed release (DR/EC) 81 mg PO QDAY Discharge Orders: Discharge Order (Routine); Ordered 10/10/24 Ordered By: Sarah Garduno Patient Education: Preeclampsia and Eclampsia After Delivery (GEN), Vaginal Delivery (DC) Additional Instructions: ACTIVITY RESTRICTIONS: Nothing vaginally for 6 weeks: no tampons/intercourse Off of work/school for a minimum of 6 weeks Symptoms to report to doctor: Bleeding that saturates more than one pad per hour Passing clots larger than the size of a golf ball Pain not relieved by prescribed medication Fever: temperature 100.4o Fahrenheit A foul vaginal odor Difficulty in emotions, mood and functions Thoughts of hurting yourself and/or Painful, reddened area in your breast Any drainage, redness or tenderness in your IV/epidural site Severe headache that doesn't improve after taking medications Changes in vision, including temporary loss of vision, blurred vision, and/or light sensitivity Upper abdominal pain (especially if under ribs on the right side) Decrease in urination or painful, frequent urinating Chest pain Shortness of breath Tenderness or pain with redness and/swelling in the calf(s) of your leg Concerns about your incision: increased pain, swelling, redness or drainage. For Blood Pressure: Nifedipine ER 30mg daily Check your blood pressure at home at least once a day. Be seen in the clinic for a BP check on 10/14/2024. Contact the clinic at if your BP >/= 140/90 or </= 90/60 to get recommendations on medication management. Go to the Emergency Department if your BP is >/= 160/110. Follow-up: 1. 2 week visit: Screen for anxiety/depression, discuss contraceptive options, incision check and answer questions regarding self and infant care. 2. A 6 week visit for an annual physical exam. For Pain: Take ibuprofen 600mg every 6 hours and ES Tylenol 1,000mg (2 tablets/capsules) every 6 hours both medications are to be taken if needed: Alternate these every 3 hours. Example: Take ibuprofen at 9am, Tylenol at Noon, ibuprofen at 3pm, Tylenol at 6pm, etc. consultation services are available to all mothers and babies for the first year after delivery. To make an appointment, please call [phone]. Activity Level: Other Discharge Diet: Regular Follow Up Appointments: Romario Russell MD [Primary Care Provider, Family Practice] Forms: [employer] Info Instructions
[2024-10-10] MEDS: DOCUSATE SODIUM 100 MG CAPSULE PO (08:44)
[2024-10-10 08:57] VITALS: BP 135/82; PULSE 67; RESP 16; TEMP 36.7; O2SAT 97
[2024-10-10] MEDS: IBUPROFEN 600 MG TABLET PO (09:05)
[2024-10-10] MEDS: FERROUS SULFATE 325 MG TABLET PO (11:06)
== END 2024-10-10 11:30 | disposition home or self-care (01) | DRG 806 ==
PROVIDERS: Advanced Practice Midwife; Obstetrics & Gynecology; Admitting Provider Advanced Practice Midwife; PCP Family Medicine; Visit Provider Advanced Practice Midwife
DX: O13.4 Gestational [pregnancy-induced] hypertension without significant proteinuria, complicating childbirth (principal); D62 Acute posthemorrhagic anemia; Z37.0 Single live birth; O14.14 Severe pre-eclampsia complicating childbirth; O76 Abnormality in fetal heart rate and rhythm complicating labor and delivery; O66.0 Obstructed labor due to shoulder dystocia; O90.81 Anemia of the puerperium; O70.1 Second degree perineal laceration during delivery; O48.0 Post-term pregnancy; O40.3XX0 Polyhydramnios, third trimester, not applicable or unspecified; O99.344 Other mental disorders complicating childbirth; F32.A Depression, unspecified; F41.1 Generalized anxiety disorder; Z88.0 Allergy status to penicillin; Z3A.41 41 weeks gestation of pregnancy
CPT/HCPCS: 36415; 59200; 82565; 82570; 83735; 84156; 84450; 84460; 84520; 85025; 85027; 86592; 88307; A9270; J2003; J2270; J2405; J3475; J7120